=== PATIENT | female | born 1935 | race Caucasian/White ===

== ENCOUNTER 2021-01-11 11:18 | Outpatient (REF) | payer MEDICARE, SELFPAY ==
--- NOTE | 2021-01-11 11:27 | MHC.AU.P13 ---
Hearing Instrument Problem Date of Visit: 01/11/21 Right Ear: Plater Hot Dip: Phonak Model: Certena SR Art Canal Serial Number: [id number] Repair Warranty: Loss and Damage Warranty: Battery Size: 312 Type of Wax Guard: CERUSTOP Dispensed By: [facility] Date of Fittin01/24/2010 Left Ear: Plater Hot Dip: Phonak Model: Virto Q50-312 canal Serial Number: [id number] Repair Warranty: Loss and Damage Warranty: Battery Size: 312 Type of Wax Guard: CERUSTOP Dispensed By: [facility] Date of Fittin02/24/2014 Follow-Up Summary: Patient came in with old 2009 right aid - program button missing - reports cannot find new one and would like repaired. Phonak no longer will repair. Sent right to [facility]. Left aid was cleaned, wax guard and battery replaced, now amplifying clearly. Call when right repair is in. Quoted $330.00 Recommendations: Recommendations: Patient will be contacted when materials have arrived. Signature:
== END 2021-01-11 11:19 | disposition home or self-care (01) ==
LOC: HO.HAP 11:18
PROVIDERS: Visit Provider Internal Medicine
DX: Z13.89 Encounter for screening for other disorder (principal)

== ENCOUNTER 2021-02-04 11:24 | Outpatient (REF) | payer SELFPAY | END 2021-02-04 11:25 | disposition home or self-care (01) | LOC: HO.HAP 11:24 | PROVIDERS: Visit Provider Internal Medicine | DX: Z46.1 Encounter for fitting and adjustment of hearing aid (principal); H90.3 Sensorineural hearing loss, bilateral | CPT/HCPCS: V5014 ==

== ENCOUNTER 2022-04-17 11:50 | Outpatient (REF) | payer MEDICARE, SELFPAY | END 2022-04-17 11:51 | disposition home or self-care (01) | LOC: HO.HAP 11:50 | PROVIDERS: Visit Provider Internal Medicine | DX: Z13.89 Encounter for screening for other disorder (principal) ==

== ENCOUNTER 2022-04-19 11:33 | Outpatient (REF) | payer SELFPAY | END 2022-04-19 11:34 | disposition home or self-care (01) | LOC: HO.HAP 11:33 | PROVIDERS: Visit Provider Internal Medicine | DX: Z46.1 Encounter for fitting and adjustment of hearing aid (principal); H90.3 Sensorineural hearing loss, bilateral | CPT/HCPCS: 92593 ==